=== PATIENT | male | born 1965 | race Caucasian/White ===

== ENCOUNTER 2021-11-16 21:12 | Emergency (ER) | payer OTHER ==
[~2021-11-16] VITALS: Ht 195.6 cm; Wt 111.1 kg
[~2021-11-16 21:12] MED LIST: CRESTOR5 MG; FLEXERIL PO; METFORMIN; NORCO 5-325 TA1 EACH PO; PERCOCET 5-3251 EACH PO; ULTRAM 50MG TAB50 MG; VALIUM5 MG PO; VIIBRYD20 MG; ZOLOFT
[2021-11-16] MEDS ORDERED: WELLBUTRIN SR150 M1 PO (21:18)
[2021-11-16] MEDS ORDERED: ABILIFY 2 MG2 M1 PO (21:18)
[2021-11-17 01:08] LABS: ABSOLUTE BASOPHILS 0.1 thou/uL (0.0-0.2); ABSOLUTE EOSINOPHILS 0.3 thou/uL (0.0-0.7); ABSOLUTE LYMPHOCYTES 1.8 thou/uL (0.8-5.3); ABSOLUTE MONOCYTES 0.7 thou/uL (0.0-1.2); ABSOLUTE NEUTROPHILS 5.6 thou/uL (1.6-8.1); BASOPHILS 0.8 %; EOSINOPHILS 3.8 %; HEMATOCRIT 40.9 % (42.0-52.0); HEMOGLOBIN 13.9 gm/dL (14.0-18.0); LYMPHOCYTES 21.2 %; MCH 29.7 pg (26.0-34.0); MCHC 33.9 g/dL (28.0-37.0); MCV 87.5 fL (80.0-100.0); MONOCYTES 8.7 %; NUCLEATED RBCS 0 /100WBC; PLATELET COUNT* 196 thou/uL (150-400); POLYS 65.5 %; RBC 4.67 mil/uL (4.50-6.00); RDW-CV 14.1 % (10.5-14.5); WBC 8.5 thou/uL (4.0-11.0)
[2021-11-17 01:16] LABS: CREATININE 1.1 mg/dL (0.6-1.3); POTASSIUM 4.5 mmol/L (3.5-5.1)
[2021-11-17 01:20] LABS: ALBUMIN 3.4 g/dL (3.4-5.0); TOTAL BILIRUBIN 0.5 mg/dL (<0.1-1.0); TOTAL PROTEIN 7.2 g/dL (6.4-8.2)
[2021-11-17] MEDS ORDERED: CARAFATE1 GM PO (02:02)
[2021-11-17] MEDS ORDERED: OMEPRAZOLE 20 M20 M1 PO (02:02)
[2021-11-17 02:14] VITALS: BP 154/100
--- NOTE | 2021-11-18 09:46 | EKG ---
[place] [address] ELECTROCARDIOGRAM REPORT Name: ESTHELAEDNA Room: [facility]#: [id number] Admission: 11/16/21 Attend Phys: Discharge: 11/17/21 Date of : 67 Date of Service: 11/16/212145 Report #: [id number] THIS REPORT FOR: //name// [facility] ED Test Date: 2021-11-16 Test Time: 21:46:27 Pat Name: EDNA PROCTOR Department: Room: Gender: Insole Taper: [facility] : 1965 Requested By: Evonne Rosario Order Number: [id number] MD: Reza Childers Measurements Intervals [place] Rate: 93 P: 64 VA: 155 QRS: 54 QRSD: 102 T: 46 QT: 339 QTc: 422 Interpretive Statements Sinus rhythm Abnormal R-wave progression, early transition No previous ECG available for comparison Electronically Signed On 11-18-2021 9:45:49 [employer]JECT [employer]ODUCT [employer]GER by Reza Childers [email or web address] <ELECTRONICALLY SIGNED> By: Reza Childers MD, [facility] 11/18/21 0945 45 45 Reza Childers MD, [facility] /EPI
== END 2021-11-17 02:15 | disposition home or self-care (01) ==
LOC: M.ERS 21:12
PROVIDERS: Personal Emergency Response Attendant
DX: F41.9 Anxiety disorder, unspecified (principal); R07.89 Other chest pain; E78.00 Pure hypercholesterolemia, unspecified; Z79.899 Other long term (current) drug therapy